=== PATIENT | male | born 1965 ===

== ENCOUNTER 2016-09-19 18:14 | Emergency (ER) | payer MEDICARE ==
[~2016-09-19] VITALS: Ht 180.3 cm; Wt 94.4 kg
[2016-09-19 19:30] LABS: URINE BILIRUBIN - DIPSTICK NEGATIVE (NEGATIVE); URINE BLOOD DIPSTICK NEGATIVE (NEGATIVE); URINE CLARITY CLEAR; URINE COLOR YELLOW; URINE GLUCOSE - DIPSTICK NEGATIVE (NEGATIVE); URINE KETONE TRACE mg/dL (NEGATIVE); URINE LEUK ESTERASE NEGATIVE (NEGATIVE); URINE NITRITE - DIPSTICK NEGATIVE (Negative); URINE PROTEIN - DIPSTICK NEGATIVE (NEG-TRACE); URINE UROBILINOGEN - DIPSTICK 0.2 E.U./dL (0.2)
[2016-09-19 19:51] LABS: HEMATOCRIT 43.8 % (39.0-50.0); IMMATURE GRANULOCYTES 0.3 % (0.0-1.0); MEAN CELL VOLUME 88.3 fL CALC (80.0-100.0); MEAN CORPUSCULAR HGB 30.2 pG CALC (26.0-32.0); MEAN CORPUSCULAR HGB CONC 34.2 g/L CALC (32.0-36.0); NEUT# 8.35 thou/uL (1.82-7.42); RED BLOOD COUNT 4.96 mill/uL (4.70-6.10)
[2016-09-19 20:03] LABS: ALBUMIN 4.7 g/dL (3.2-5.0); ALKALINE PHOSPHATASE 76 u/l (38-126); AMYLASE < 30 u/l (30-110); ANION GAP 16 (6-22 (CALC)); BILIRUBIN, TOTAL 0.5 mg/dL (0.0-1.4); BUN 15 mg/dL (9-20); BUN/CREATININE RATIO 17 (12-20 (CALC)); CALCIUM 9.8 mg/dL (8.4-10.2); CARBON DIOXIDE 27 mmol/l (22-30); CHLORIDE 103 mmol/l (95-108); CREATININE 0.9 mg/dL (0.7-1.3); GFR > 60 ML/MIN (>=60 (CALC)); GFR FOR AFR.AMER. > 60 ML/MIN (>=60 (CALC)); GLUCOSE 119 mg/dL (75-110); LIPASE 73 u/l (23-300); POTASSIUM 3.9 mmol/l (3.5-5.1); SGOT/AST 20 u/l (17-59); SGPT/ALT 38 u/l (21-72); SODIUM 142 mmol/l (137-146); TOTAL PROTEIN 7.1 g/dL (6.3-8.2)
[2016-09-19] MEDS ORDERED: LANTUS SOL100 UNIT/M SC (20:57)
[2016-09-19] MEDS ORDERED: LAMOTRIGINE5 MG PO (20:59)
[2016-09-19] MEDS ORDERED: METRONIDAZOL500 MG PO (21:44)
[2016-09-19] MEDS ORDERED: TORADOL PO (21:44)
[2016-09-19] MEDS ORDERED: CIPROFLOXACN500 MG PO (21:44)
[2016-09-19 21:58] VITALS: BP 119/69
== END 2016-09-19 21:58 | disposition home or self-care (01) ==
LOC: ED 18:14
PROVIDERS: Emergency Medicine
DX: K57.32 Diverticulitis of large intestine without perforation or abscess without bleeding (principal); R10.31 Right lower quadrant pain; R10.32 Left lower quadrant pain; R50.9 Fever, unspecified